=== PATIENT | male | born 1945 | race Caucasian/White ===

== ENCOUNTER 2019-04-05 03:47 | Inpatient (IN) | payer MEDICARE ==
[~2019-04-05] VITALS: Ht 170.2 cm; Wt 98.2 kg
[2019-04-05] MEDS ORDERED: ATOR-2 PO (04:02)
--- NOTE | 2019-04-05 04:02 | NUR ---
bib remsa, [facility] C/O CP discribed as tightness that started last night. went to hospital, pain relieved with nitro. pt was at home getting ready to go to bed when pain started. PT attached to all monitors. pt states he is not currently having any chest pain. no acute distress. blankets provided. call light within reach.
[2019-04-05] MEDS ORDERED: ONDANSETRON 2MG/ML, 2ML IVPush PRN (04:30)
[2019-04-05] MEDS ORDERED: morphine SULFATE 10 MG/ML, 1ML IVPush PRN (04:30)
[2019-04-05] MEDS ORDERED: NITROGLYCERIN OINT 2%, 1GM TP ONE (04:30)
[2019-04-05] MEDS ORDERED: ACETAMINOPHEN 325 MG TABLET PO PRN (04:30)
[2019-04-05 05:07] LABS: TROPONIN I 0.311 ng/mL (0.000-0.045)
--- NOTE | 2019-04-05 05:10 | NUR ---
ROSALIND FROM LAB CALLED WITH CRITICAL LAB, TROPONIN-0.311, UPDATED ADMIT , PT OK FOR TRANSFER TO FLOOR
--- NOTE | 2019-04-05 05:14 | NUR ---
PT TRANSFERRED FOR ADMIT. REPORT CALLED TO IMSHA STAFFORD THAT PT'S TROPONIN-0.311 AND ADMIT MD ORDERED LOVENOX TO BE ADMINISTERED.
[2019-04-05 05:24] VITALS: BP 130/77
[2019-04-05] MEDS ORDERED: ENOXAPARIN 100 MG/ML SQ SCH (05:30)
[2019-04-05] MEDS: ASPIRIN 81 MG TABLET EC PO SCH (05:43)
[2019-04-05 07:38] VITALS: BP 104/60
[2019-04-05 07:57] LABS: TROPONIN I 0.876 ng/mL (0.000-0.045)
[2019-04-05] MEDS ORDERED: HEPARIN 25,000 UNITS/500ML PMX 500 ML IV PRN (13:00)
[2019-04-05] MEDS ORDERED: HEPARIN 5,000 UNITS/ML, 1ML IV ONE (13:00)
[2019-04-05 14:26] VITALS: BP 106/71
[2019-04-05 19:31] VITALS: BP 115/70
[2019-04-05] MEDS: ATORVASTATIN 80 MG TABLET PO SCH (21:15)
[2019-04-05] MEDS: HEPARIN 5,000 UNITS/ML, 1ML IV PRN (21:16)
[2019-04-06 01:31] VITALS: BP 122/77
[2019-04-06 03:44] LABS: BASOPHILS # (AUTO) 0.06 x10^3/uL (0-0.1); BASOPHILS % (AUTO) 1 % (0-1); EOSINOPHILS # (AUTO) 0.32 x10^3/uL (0-0.4); EOSINOPHILS % (AUTO) 3 % (1-7); LYMPHOCYTES # (AUTO) 2.79 x10^3/uL (1-3.4); LYMPHOCYTES % (AUTO) 23 % (22-44); MD NO; MEAN CORPUSCULAR HEMOGLOBIN 32.5 pg (27.5-34.5); MEAN CORPUSCULAR HGB CONC 32.8 g/dL (33.2-36.2); MEAN CORPUSCULAR VOLUME 99.1 fL (81-97); MEAN PLATELET VOLUME 8.2 fL (7.4-10.4); MONOCYTES # (AUTO) 0.73 x10^3/uL (0.2-0.8); MONOCYTES % (AUTO) 6 % (2-9); NEUTROPHILS # (AUTO) 8.24 x10^3/uL (1.8-6.8); NEUTROPHILS % (AUTO) 68 % (42-75); PLATELET COUNT 200 x10^3/uL (130-400); RED BLOOD COUNT 5.14 x10^6/uL (4.38-5.82)
[2019-04-06 03:55] LABS: ANION GAP 6 mmol/L (5-15); CALCIUM 8.7 mg/dL (8.5-10.1); CHLORIDE 112 mmol/L (98-107); CREATININE 0.68 mg/dL (0.7-1.3)
[2019-04-06] MEDS: HEPARIN 5,000 UNITS/ML, 1ML IV PRN (04:11)
[2019-04-06] MEDS: ASPIRIN 81 MG TABLET EC PO SCH (05:10)
[2019-04-06 07:38] VITALS: BP 133/71
[2019-04-06] MEDS ORDERED: FENTANYL PF 100 MCG/2ML ONE (11:54)
[2019-04-06] MEDS ORDERED: MIDAZOLAM 1 MG/ML, 5ML ONE (11:54)
[2019-04-06] MEDS ORDERED: BIVALIRUDIN 250 MG ONE ×2 (11:55→12:50)
[2019-04-06] MEDS ORDERED: LIDOCAINE-MPF 1%, 5ML ONE (11:55)
[2019-04-06] MEDS ORDERED: TICAGRELOR 90 MG TABLET ONE (11:55)
[2019-04-06] MEDS ORDERED: VERAPAMIL 2.5 MG/ML, 2ML ONE (11:55)
[2019-04-06] MEDS ORDERED: HEPARIN 1,000 UNITS/ML, 10ML ONE (11:55)
[2019-04-06] MEDS ORDERED: BIVALIRUDIN 250 MG in SODIUM CHLORIDE 0.9% 50 ML IV SCH (13:24)
[2019-04-06 13:30] VITALS: BP 107/72
[2019-04-06] MEDS ORDERED: ASPIRIN 325 MG TABLET EC ONE (13:43)
[2019-04-06] MEDS: SODIUM CHLORIDE 0.9% 1,000 ML IV SCH ×3 (14:11→21:38)
[2019-04-06] MEDS: METOPROLOL TARTRATE 25 MG TABLET PO SCH (18:21)
[2019-04-06 18:49] VITALS: BP 110/64
[2019-04-06] MEDS: TICAGRELOR 90 MG TABLET PO SCH (19:35)
[2019-04-06] MEDS: ATORVASTATIN 80 MG TABLET PO SCH (19:35)
[2019-04-07 01:50] VITALS: BP 129/73
[2019-04-07 04:37] LABS: MEAN CORPUSCULAR HEMOGLOBIN 32.6 pg (27.5-34.5); MEAN CORPUSCULAR HGB CONC 33.4 g/dL (33.2-36.2); MEAN CORPUSCULAR VOLUME 97.6 fL (81-97); RED BLOOD COUNT 4.95 x10^6/uL (4.38-5.82); RED CELL DISTRIBUTION WIDTH 14.2 % (9.4-14.8)
[2019-04-07 04:39] LABS: INTERNATIONAL NORMALIZED RATIO 1.08 (0.93-1.1); PROTHROMBIN TIME 11.3 Seconds (9.6-11.5)
[2019-04-07 04:42] LABS: ALBUMIN 3.1 g/dL (3.4-5.0); ANION GAP 3 mmol/L (5-15); CALCIUM 8.2 mg/dL (8.5-10.1); CHLORIDE 116 mmol/L (98-107)
[2019-04-07 05:45] LABS: BASOPHILS % (AUTO) 1 % (0-1); EOSINOPHILS # (AUTO) 0.26 x10^3/uL (0-0.4); EOSINOPHILS % (AUTO) 3 % (1-7); LYMPHOCYTES # (AUTO) 1.82 x10^3/uL (1-3.4); LYMPHOCYTES % (AUTO) 17 % (22-44); MD SCAN; MONOCYTES # (AUTO) 0.79 x10^3/uL (0.2-0.8); MONOCYTES % (AUTO) 8 % (2-9); NEUTROPHILS # (AUTO) 7.62 x10^3/uL (1.8-6.8); NEUTROPHILS % (AUTO) 72 % (42-75)
[2019-04-07 05:46] LABS: MEAN PLATELET VOLUME 7.9 fL (7.4-10.4); PLATELET COUNT 209 x10^3/uL (130-400)
[2019-04-07 07:20] VITALS: BP 103/60
[2019-04-07] MEDS: METOPROLOL TARTRATE 25 MG TABLET PO SCH ×2 (08:21→18:01)
[2019-04-07] MEDS ORDERED: SODIUM CHLORIDE 0.9% 1,000 ML IV SCH ×2 (10:30→13:43)
[2019-04-07] MEDS: TICAGRELOR 90 MG TABLET PO SCH ×2 (11:41→20:48)
[2019-04-07] MEDS: ASPIRIN 81 MG TABLET EC PO SCH (11:41)
[2019-04-07] MEDS ORDERED: MIDAZOLAM 1 MG/ML, 5ML ONE (11:52)
[2019-04-07] MEDS ORDERED: LIDOCAINE-MPF 1%, 5ML ONE (11:52)
[2019-04-07] MEDS ORDERED: HEPARIN 1,000 UNITS/ML, 10ML ONE (11:52)
[2019-04-07] MEDS ORDERED: BIVALIRUDIN 250 MG ONE (11:52)
[2019-04-07] MEDS ORDERED: TICAGRELOR 90 MG TABLET ONE (11:52)
[2019-04-07] MEDS ORDERED: FENTANYL PF 100 MCG/2ML ONE (11:52)
[2019-04-07] MEDS ORDERED: VERAPAMIL 2.5 MG/ML, 2ML ONE (11:52)
[2019-04-07] MEDS: SODIUM CHLORIDE 0.9% 1,000 ML IV SCH ×2 (11:58→17:56)
[2019-04-07 14:00] VITALS: BP 108/62
[2019-04-07 19:20] VITALS: BP 101/66
[2019-04-07] MEDS: ATORVASTATIN 80 MG TABLET PO SCH (20:48)
[2019-04-08 01:29] VITALS: BP 112/68
[2019-04-08 05:31] LABS: BASOPHILS # (AUTO) 0.07 x10^3/uL (0-0.1); BASOPHILS % (AUTO) 1 % (0-1); EOSINOPHILS # (AUTO) 0.27 x10^3/uL (0-0.4); EOSINOPHILS % (AUTO) 3 % (1-7); LYMPHOCYTES # (AUTO) 1.82 x10^3/uL (1-3.4); LYMPHOCYTES % (AUTO) 17 % (22-44); MD NO; MEAN CORPUSCULAR HEMOGLOBIN 32.2 pg (27.5-34.5); MEAN CORPUSCULAR VOLUME 97.8 fL (81-97); MEAN PLATELET VOLUME 7.9 fL (7.4-10.4); MONOCYTES # (AUTO) 0.78 x10^3/uL (0.2-0.8); MONOCYTES % (AUTO) 7 % (2-9); NEUTROPHILS # (AUTO) 7.71 x10^3/uL (1.8-6.8); NEUTROPHILS % (AUTO) 72 % (42-75); PLATELET COUNT 204 x10^3/uL (130-400); RED BLOOD COUNT 5.16 x10^6/uL (4.38-5.82); RED CELL DISTRIBUTION WIDTH 13.9 % (9.4-14.8)
[2019-04-08 05:39] LABS: CHLORIDE 113 mmol/L (98-107)
[2019-04-08 05:47] LABS: ANION GAP 6 mmol/L (5-15); CALCIUM 8.6 mg/dL (8.5-10.1); CREATININE 0.71 mg/dL (0.7-1.3)
[2019-04-08] MEDS: METOPROLOL TARTRATE 25 MG TABLET PO SCH (05:49)
[2019-04-08 06:57] VITALS: BP 132/76
[2019-04-08] MEDS: ASPIRIN 81 MG TABLET EC PO SCH (08:10)
[2019-04-08] MEDS: TICAGRELOR 90 MG TABLET PO SCH (08:11)
[2019-04-08] MEDS ORDERED: LISINOPRIL 5 MG TABLET PO SCH (09:00)
[2019-04-08] MEDS ORDERED: TICA90TA PO (10:39)
[2019-04-08] MEDS ORDERED: ASPI81TA45 PO (10:39)
[2019-04-08] MEDS ORDERED: LISI5TAB7 PO (10:39)
[2019-04-08] MEDS ORDERED: METO25TA35 PO (10:39)
[2019-04-08 12:28] VITALS: BP 102/68
== END 2019-04-08 13:50 | disposition home or self-care (01) | DRG 246 ==
LOC: ED 03:55 → INTOOBSV 04:03 → EDIP 04:03 → ED 04:05 → 5SO 05:18 → OBSVTOIN 15:35 → DCLOUNGE 04-08 12:50
PROVIDERS: ADMIT Internal Medicine; ATTEND Internal Medicine
PROC: 027034Z Dilation of Coronary Artery, One Artery with Drug-eluting Intraluminal Device, Percutaneous Approach (ICD-10-PCS; principal; 2019-04-06)
PROC: 4A023N7 Measurement of Cardiac Sampling and Pressure, Left Heart, Percutaneous Approach (ICD-10-PCS; 2019-04-06)
PROC: B211YZZ Fluoroscopy of Multiple Coronary Arteries using Other Contrast (ICD-10-PCS; 2019-04-06)
PROC: B215YZZ Fluoroscopy of Left Heart using Other Contrast (ICD-10-PCS; 2019-04-06)
PROC: 027034Z Dilation of Coronary Artery, One Artery with Drug-eluting Intraluminal Device, Percutaneous Approach (ICD-10-PCS; 2019-04-07)
DX: I21.4 Non-ST elevation (NSTEMI) myocardial infarction (principal); I50.33 Acute on chronic diastolic (congestive) heart failure; I42.9 Cardiomyopathy, unspecified; I35.8 Other nonrheumatic aortic valve disorders; Z88.0 Allergy status to penicillin; E11.9 Type 2 diabetes mellitus without complications; E78.5 Hyperlipidemia, unspecified; F17.200 Nicotine dependence, unspecified, uncomplicated; I25.119 Atherosclerotic heart disease of native coronary artery with unspecified angina pectoris; Z79.899 Other long term (current) drug therapy; Z85.828 Personal history of other malignant neoplasm of skin; Z79.82 Long term (current) use of aspirin
CPT/HCPCS: 36415; 71045; 80048; 80069; 83735; 84100; 84145; 84484; 85025; 85520; 85610; 93005; 93306; 93454; 93458; 99156; 99157; 99285; C1769; C1894; C9600; G0378; J0583; J1644; J1650; J2250; J3010; C1725; C1874; C1887; C8924; J7030; Q9967